=== PATIENT | female | born 1970 | race Caucasian/White ===

== ENCOUNTER 2018-03-21 18:38 | Emergency (ER) | payer OTHER ==
[~2018-03-21] VITALS: Ht 170.2 cm; Wt 78.6 kg
[~2018-03-21 18:38] MED LIST: BUPROPION HCL100 MG PO; FLOVENT 44120 INHALA IH; FOLIC ACID1 MG PO; HYDROXYCHLOROQ200 MG PO; LEVOTHROID,S0.075 MG PO; MULTIVITAMIN1 EAC1 PO; SINGULAIR10 MG PO; [UNRECOGNIZED DRUG - OTHER]
[2018-03-21 21:56] LABS: CHLORIDE 104 mEq/L (99-109); POTASSIUM 3.9 mEq/L (3.7-5.4); SODIUM 141 mEq/L (136-147)
[2018-03-21 21:57] LABS: GLUCOSE 110 mg/dL (70-99)
[2018-03-21 22:00] LABS: HEMATOCRIT 40.2 % (36.0-46.0); HEMOGLOBIN 13.7 G/DL (11.9-15.5); MCH 30.2 PG (29.0-34.0); MCHC 34.1 G/DL (30.0-36.0); MCV 88.5 FL (83-99); PLAT.SUFFICIENCY ADEQUATE; PLATELET COUNT 249 K/uL (156-360); RBC DIS.WIDTH-CV 14.1 % (11.8-14.6); RBC DIS.WIDTH-SD 45.1 % (39-53); RED BLOOD COUNT 4.54 M/uL (3.80-5.20); WHITE BLOOD COUNT 10.1 K/uL (4.1-10.2)
[2018-03-21 22:01] LABS: CREATININE 0.8 mg/dL (0.6-1.3); GFR ESTIMATE (CALCULATED) > 59 mL/min/
[2018-03-21 22:02] LABS: UREA NITROGEN (BUN) 9 mg/dL (9-23)
[2018-03-21] MEDS ORDERED: KEFLEX500 MG PO (23:27)
[2018-03-21] MEDS ORDERED: BACTRIM,SEPT1 TABLET PO (23:27)
[2018-03-22 00:08] VITALS: BP 135/77
== END 2018-03-22 00:08 | disposition home or self-care (01) ==
LOC: EME 18:38
PROVIDERS: Nurse Practitioner Family
DX: L02.31 Cutaneous abscess of buttock (principal); M06.9 Rheumatoid arthritis, unspecified; M79.7 Fibromyalgia; F17.200 Nicotine dependence, unspecified, uncomplicated
CPT/HCPCS: 74177; 80048; 85027; 87070; 87075; 87077; 87147; 87186; 87205; 99281; 99285; J7030